=== PATIENT | male | born 1970 | race Caucasian/White ===

== ENCOUNTER 2018-04-20 11:15 | Inpatient (IN) | payer OTHER, MEDICARE ==
[~2018-04-20] VITALS: Ht 177.8 cm; Wt 104.3 kg
--- NOTE | ~2018-04-20 | EKG ---
[place], [place] ELECTROCARDIOGRAM REPORT NAME: PAVAN SIM UNIT #: [id number] ROOM: 403 DOCTOR: TITUS DRAFT REPORT BIRTHDATE: [birth year] [facility] Test Date: 2018-04-20 Test Time: 15:44:50 Pat Name: PAVAN SIM Department: Room: 403 2 Gender: M Chief Airport Guide: CAROL : 1970 Requested By: REGGIE HINOJOSA Order Number: [id number] Reading MD: Sakshi Padilla MD Measurements Intervals [place] Rate: 87 P: 4 MS: 161 QRS: -1 QRSD: 83 T: 146 QT: 348 QTc: 419 Interpretive Statements Sinus rhythm Repol abnrm suggests ischemia, anterolateral Minimal ST elevation, anterior leads Baseline wander in lead(s) V4 Electronically Signed On 04-21-2018 4:58:11 PST by Sakshi Padilla MD CM:EKGRPT:ELECTROCARDIOGRAM REPORT [id number] REGGIE GLEASON DRAFT REPORT REGGIE HINOJOSA DO
--- NOTE | ~2018-04-20 | EKG ---
[place], [place] ELECTROCARDIOGRAM REPORT NAME: PAVAN SIM UNIT #: [id number] ROOM: 403 DOCTOR: TTIUS DRAFT REPORT BIRTHDATE: [birth year] [facility] Test Date: 2018-04-20 Test Time: 11:42:07 Pat Name: PAVAN SIM Department: Room: 403 Gender: M [employer] F[employer] Instructor: : 1970 Requested By: JONATHAN WARREN Order Number: [id number] Reading MD: Sakshi Padilla MD Measurements Intervals [place] Rate: 91 P: -11 GA: 157 QRS: 0 QRSD: 84 T: 146 QT: 338 QTc: 416 Interpretive Statements Sinus rhythm Repol abnrm suggests ischemia, lateral leads No previous ECG available for comparison Electronically Signed On 04-21-2018 4:57:50 PST by Sakshi Padilla MD CM:EKGRPT:ELECTROCARDIOGRAM REPORT [id number] JONATHAN WARREN MD EPIPHBRYANT DRAFT REPORT JONATHAN WARREN MD
--- NOTE | ~2018-04-20 | EKG ---
[place], [place] ELECTROCARDIOGRAM REPORT NAME: PAVAN SIM UNIT #: [id number] ROOM: 403 DOCTOR: TITUS DRAFT REPORT BIRTHDATE: [birth year] [facility] Test Date: 2018-04-20 Test Time: 13:46:16 Pat Name: PAVAN SIM Department: Room: 403 2 Gender: M Oracle Programmer: : 1970 Requested By: REGGIE HINOJOSA Order Number: [id number] Reading MD: Sakshi Padilla MD Measurements Intervals [place] Rate: 90 P: 6 IA: 159 QRS: -4 QRSD: 80 T: 151 QT: 332 QTc: 407 Interpretive Statements Sinus rhythm Repol abnrm suggests ischemia, anterolateral No previous ECG available for comparison Electronically Signed On 04-21-2018 4:58:05 PST by Sakshi Padilla MD CM:EKGRPT:ELECTROCARDIOGRAM REPORT [id number] REGGIE GLEASON DRAFT REPORT REGGIE HINOJOSA DO
--- NOTE | ~2018-04-20 | EKG ---
[place], [place] ELECTROCARDIOGRAM REPORT NAME: PAVAN SIM UNIT #: [id number] ROOM: 403 DOCTOR: TITUS DRAFT REPORT BIRTHDATE: [birth year] [facility] Test Date: 2018-04-20 Test Time: 12:26:53 Pat Name: PAVAN SIM Department: Room: 403 Gender: M Gear Straightener: : 1970 Requested By: JONATHAN WARREN Order Number: [id number] Reading MD: Sakshi Padilla MD Measurements Intervals [place] Rate: 95 P: -13 IN: 161 QRS: -1 QRSD: 80 T: 156 QT: 333 QTc: 419 Interpretive Statements Sinus rhythm Probable left atrial enlargement Abnormal R-wave progression, early transition Repol abnrm suggests ischemia, anterolateral Baseline wander in lead(s) V1 No previous ECG available for comparison Electronically Signed On 04-21-2018 4:57:55 PST by Sakshi Padilla MD CM:EKGRPT:ELECTROCARDIOGRAM REPORT [id number] JONATHAN QURESHI DRAFT REPORT JONATHAN WARREN MD
[2018-04-20 11:26] VITALS: BP 108/63
[2018-04-20 11:40] LABS: BASO % 0.2 % (0.0-1.0); EOS % 0.3 % (1.0-4.0); HEMATOCRIT 45.6 % (42.0-52.0); HEMOGLOBIN 16.6 g/dl (14.0-18.0); LYMPH # 0.9 10*3/uL (1.3-4.4); LYMPH % 8.6 % (27.0-41.0); MEAN CORPUSCULAR HGB CONC 36.4 g/dl (33.0-37.0); MEAN PLATELET VOLUME 10.1 fl (9.6-12.3); MONO # 0.4 10*3/uL (0.1-1.0); NEUT # 8.7 10*3/uL (2.3-7.9); NEUT % 86.1 % (47.0-73.0); PLATELET COUNT AUTOMATED 156 10*3/uL (130-400); RED BLOOD COUNT 5.18 10*6/uL (4.50-5.90); RED CELL DISTRI WIDTH 12.9 % (0-14.5); WHITE BLOOD COUNT 10.1 10*3/uL (4.8-10.8)
[2018-04-20 11:59] LABS: ALBUMIN 3.6 gm/dl (3.1-4.5); CREATININE 1.52 mg/dL (0.70-1.30); POTASSIUM 4.9 mmol/L (3.5-5.1); TOTAL PROTEIN 7.3 gm/dL (6.4-8.2)
[2018-04-20 12:00] VITALS: BP 89/60
[2018-04-20 12:04] LABS: TROPONIN I 0.065 ng/ml (<0.045)
[2018-04-20 12:05] LABS: THYROID STIM HORMONE (HS) 1.21 uIU/ml (0.358-4.75)
--- NOTE | 2018-04-20 12:38 | NUR ---
PT REPORTED HE DEVELOPED CHEST PAIN. DR. WARREN NOTIFIED IN PATIENT CONDITION. EKG WAS DONE.
[2018-04-20 12:39] VITALS: BP 100/60
[2018-04-20 13:48] VITALS: BP 95/65
--- NOTE | 2018-04-20 14:30 | NUR ---
A 47, admitted to 4E, under the services of REGGIE Dean DO with a diagnosis of HYPOGLYCEMIA,ELEVATED TROPONIN, HYPOTENSION. Chief complaint is N/V, NEAR SYNCOPE. Patient arrived via stretcher from ER. Monitor applied. Initial assessment completed. Vital signs taken and recorded. REGGIE DEAN DO notified of admission to the unit. Orders received. See assessment for past medical history, medications and allergies. Patient and/or family oriented to unit. [facility] visitation policy reviewed. Clothing/patient valuable form completed. DANIEL BARROW
[2018-04-20 15:00] VITALS: BP 125/69
[2018-04-20] MEDS ORDERED: ASPIRIN ADULT L81 M1 PO (15:43)
[2018-04-20] MEDS ORDERED: ZOLOFT50 MG PO (15:43)
[2018-04-20] MEDS ORDERED: LABETALOL HCL200 MG PO (15:43)
[2018-04-20] MEDS ORDERED: LYRICA75 M1 PO (15:44)
[2018-04-20] MEDS ORDERED: COZAAR25 M1 PO (15:45)
[2018-04-20] MEDS ORDERED: AMLODIPINE BESY10 MG PO (15:45)
[2018-04-20 20:00] VITALS: BP 148/70
--- NOTE | 2018-04-20 21:18 | NUR ---
TYLENOL GIVEN FOR C/O LUNG PAIN
--- NOTE | 2018-04-20 22:00 | NUR ---
BLOOD SUGAR READING 149
--- NOTE | 2018-04-20 23:00 | NUR ---
PT RESTING, SNORING RESPIRATIONS, NO DISTRESS ON ROOM AIR. EARLIER MEDS EFFECTIVE. ALL SAFETY MEASURES IN PLACE.
[2018-04-21] VITALS: BP 164/92
[2018-04-21 04:00] VITALS: BP 160/90
[2018-04-21 06:28] LABS: BASO % 0.1 % (0.0-1.0); EOS # 0.1 10*3/uL (0.0-0.4); EOS % 0.7 % (1.0-4.0); HEMATOCRIT 42.8 % (42.0-52.0); HEMOGLOBIN 14.6 g/dl (14.0-18.0); LYMPH # 1.4 10*3/uL (1.3-4.4); LYMPH % 20.2 % (27.0-41.0); MEAN CORPUSCULAR HGB 31.1 pg (27.0-31.0); MEAN CORPUSCULAR HGB CONC 34.1 g/dl (33.0-37.0); MEAN PLATELET VOLUME 10.4 fl (9.6-12.3); MONO # 0.6 10*3/uL (0.1-1.0); MONO % 8.2 % (3.0-9.0); NEUT # 4.8 10*3/uL (2.3-7.9); NEUT % 70.1 % (47.0-73.0); PLATELET COUNT AUTOMATED 126 10*3/uL (130-400); RED CELL DISTRI WIDTH 12.9 % (0-14.5); WHITE BLOOD COUNT 6.8 10*3/uL (4.8-10.8)
[2018-04-21 06:29] LABS: MEAN CELL VOLUME 91.1 fl (80.0-94.0)
[2018-04-21 06:37] LABS: INTERNATIONAL NORM RATIO 0.9 (2.0-3.5)
[2018-04-21 06:49] LABS: BUN 16 mg/dl (7-24); CHLORIDE 107 mmol/L (98-107); CHOLESTEROL 148 mg/dL (<200); CREATININE 1.22 mg/dL (0.70-1.30); HDL CHOLESTEROL 31 mg/dl (40-60); LDL CHOLESTEROL 81 mg/dL (9-159); SODIUM 139 mmol/L (136-145); TRIGLYCERIDES 179 mg/dl (<150); VLDL CHOLESTEROL 36 mg/dL (6-40)
[2018-04-21 07:37] LABS: VITAMIN D, 25-HYDROXY 15.9 ng/mL (30-100)
--- NOTE | 2018-04-21 09:00 | NUR ---
Body Line Finisher in to talk to patient. Patient states lives at home with . There are few steps in the home. Physician: estela lea [facility]acy[facility] Home health services: none Patient's level of ADLs: INDEPENDENT Patient has working utilities: all working DME: none Follow-up physician's appointment after d/c: will be make by hospitalist nurse director upon discharge Does patient want to access PORTAL?: no Discharge plan discussed with patient, patient lives at home with , is independent in adls and ambulation, patient states he will be going home when able and denies any home needs. JUAN MANUEL MAKI
--- NOTE | 2018-04-21 10:19 | NUR ---
INFORMED SIGNED CONSENT OBTAINED FOR LEXISCAN STRESS TEST WITH DR TIERNEY. RESTING EKG INVERTED T WAVE I II V4-V6 NSR HR 104 BP 164/110. PULSE OX 98% LUNGS DIMINISHED. PT COMPLETED ONE MINUTE OF A LEXISCAN PROTOCOL WITH PT RECEIVING LEXISCAN 0.4MG IV OVER 10 SECONDS. NO ARRHYTHMIAS NOTED. NON DIAGNOSTIC ST CHAGNES SEEN. PT C/O SOB WITH INJECTION. LAST RECOVERY HR OF 107 BP 170/100. PT IN STABLE CONDITION, AWAITING NUCLEAR IMAGES.
[2018-04-21 12:00] VITALS: BP 196/100
[2018-04-21 12:31] LABS: BILIRUBIN NEGATIVE (NEGATIVE); BLOOD NEGATIVE (NEGATIVE); CLARITY CLEAR (CLEAR); COLOR STRAW (YELLOW); GLUCOSE NEGATIVE (NEGATIVE); KETONE NEGATIVE (NEGATIVE); LEUKO ESTERASE NEGATIVE (NEGATIVE); NITRITE NEGATIVE (NEGATIVE); SPECIFIC GRAVITY <= 1.005 (1.005-1.030); UROBILINOGEN 0.2 E.U./dl (0.2-1.0)
[2018-04-21 12:48] LABS: EPITHELIAL CELLS 0-2
[2018-04-21 14:00] VITALS: BP 148/72
[2018-04-21 16:00] VITALS: BP 153/92
--- NOTE | 2018-04-21 16:54 | NUR ---
Discharge instructions reviewed with patient/family. Patient receptive and verbalizes understanding. Follow-up care arranged. Written instructions given to patient/family. GIL GARDNER
== END 2018-04-21 16:54 | disposition home or self-care (01) | DRG 314 ==
LOC: ED 11:15 → 4E 13:00 → EDHOLD 13:00 → 4E 13:32 → EDHOLD 13:32 → 4E 04-21 16:54
PROVIDERS: Emergency Medicine; ADMIT Internal Medicine
PROC: 4A02XM4 Measurement of Cardiac Total Activity, External Approach (ICD-10-PCS; principal; 2018-04-21)
PROC: 3E073KZ Introduction of Other Diagnostic Substance into Coronary Artery, Percutaneous Approach (ICD-10-PCS; principal; 2018-04-21)
DX: I95.0 Idiopathic hypotension (principal); N17.0 Acute kidney failure with tubular necrosis; N18.3 Chronic kidney disease, stage 3 (moderate); M54.9 Dorsalgia, unspecified; R55 Syncope and collapse; E16.2 Hypoglycemia, unspecified; R94.31 Abnormal electrocardiogram [ECG] [EKG]; R07.89 Other chest pain; M25.519 Pain in unspecified shoulder; J06.9 Acute upper respiratory infection, unspecified; D72.9 Disorder of white blood cells, unspecified; G40.909 Epilepsy, unspecified, not intractable, without status epilepticus; E66.09 Other obesity due to excess calories; G47.33 Obstructive sleep apnea (adult) (pediatric); I12.9 Hypertensive chronic kidney disease with stage 1 through stage 4 chronic kidney disease, or unspecified chronic kidney disease; R74.8 Abnormal levels of other serum enzymes; Z72.0 Tobacco use; Z71.6 Tobacco abuse counseling; Z98.1 Arthrodesis status; Z80.7 Family history of other malignant neoplasms of lymphoid, hematopoietic and related tissues; Z83.3 Family history of diabetes mellitus; Z79.82 Long term (current) use of aspirin; Z79.899 Other long term (current) drug therapy; Z68.33 Body mass index [BMI] 33.0-33.9, adult